=== PATIENT | female | born 2000 | race African-American/Black ===

== ENCOUNTER 2020-09-09 10:08 | Emergency (ER) | payer BC ==
[~2020-09-09] VITALS: Ht 160 cm; Wt 57.0 kg
[2020-09-09] MEDS ORDERED: KETOROLAC 60MG/2ML VIAL IM STA (10:56)
[2020-09-09] MEDS ORDERED: ACETAMINOPHEN WITH CODEINE 300/30MG TABLET PO STA (10:56)
[2020-09-09] MEDS ORDERED: KETOROLAC 30MG/ML VIAL IV ONE (11:15)
[2020-09-09] MEDS ORDERED: HYDROCODONE/ACETAMINOPHEN 5/325MG TABLET PO STA (13:36)
[2020-09-09 16:25] LABS: BASOPHILS % 0.4 % (0.0-2.0); EOSINOPHILS % 0.6 % (0.0-5.0); HEMATOCRIT. 38.4 % (36.0-48.0); LYMPHOCYTES % 26.7 % (20.0-50.0); MEAN CORPUSCULAR HEMOGLOBIN 30.6 pg (28.0-32.0); MEAN CORPUSCULAR VOLUME 89.9 fL (81.0-99.0); MEAN PLATELET VOLUME 8.5 fl (7.4-10.4); MONOCYTES % 10.8 % (2.0-8.0); NEUTROPHILS % 61.5 % (40.0-76.0); PLATELET 238 x1000/uL (130-400); RED BLOOD CELL COUNT 4.27 mill/uL (4.2-5.4); RED CELL DISTRIBUTION WIDTH 13.7 % (11.6-14.6)
[2020-09-09 16:36] LABS: CHLORIDE 108 mEq/L (98-107)
[2020-09-09 19:08] LABS: CLARITY URINE CLOUDY (CLEAR); COLOR URINE YELLOW (YELLOW); KETONES URINE NEGATIVE (NEGATIVE); LEUKOCYTE ESTERASE URINE NEGATIVE (NEGATIVE); NITRITE URINE NEGATIVE (NEGATIVE); OCCULT BLOOD URINE NEGATIVE (NEGATIVE); PH URINE 6.5 (4.5-8.0); PROTEIN URINE NEGATIVE (NEGATIVE); SPECIFIC GRAVITY URINE 1.027 (1.005-1.030); UROBILINOGEN URINE 0.2 E.U./dL (0.2-1.0)
[2020-09-09] MEDS ORDERED: KETOROLAC 30MG/ML VIAL IV STA (19:12)
[2020-09-09] MEDS ORDERED: IOHEXOL-300 100 ML BOTTLE ONE (23:04)
[2020-09-10] MEDS ORDERED: METH-375 MT (00:29)
[2020-09-10] MEDS ORDERED: OXYCODONE HCL/ACETAMINOPHEN 5/325MG TABLET PO ONE (00:30)
[2020-09-10] MEDS ORDERED: METHOCARBAMOL 500MG TABLET PO ONE (00:30)
[2020-09-10] MEDS ORDERED: OXYC-100 MT (01:21)
[2020-09-10 02:00] VITALS: BP 132/78
== END 2020-09-10 02:29 | disposition home or self-care (01) ==
LOC: ER 10:08
DX: S39.012A Strain of muscle, fascia and tendon of lower back, initial encounter (principal); M41.9 Scoliosis, unspecified; V49.40XA Driver injured in collision with unspecified motor vehicles in traffic accident, initial encounter; Y93.89 Activity, other specified; Y92.410 Unspecified street and highway as the place of occurrence of the external cause; Z88.0 Allergy status to penicillin
CPT/HCPCS: 36415; 72100; 74177; 76830; 76856; 80053; 81003; 81025; 85025; 96374; 96376; 99285; J1885; Q9967